=== PATIENT | female | born 1985 | race Asian ===

== ENCOUNTER 2018-10-31 20:34 | Emergency (ER) | payer OTHER ==
[2018-10-31 20:41] VITALS: BMI 24.2
[2018-10-31] MEDS ORDERED: SODIUM CHLORIDE 0.9% 500 ML INFUS.BAG IV ONE (20:46)
--- NOTE | 2018-10-31 20:46 | PDOC ---
Rapid Medical Evaluation Chief Complaint: Cold Symptoms Time Seen by Provider: 10/31/18 20:38 Medical Evaluation: Allergies Allergy/AdvReac Type Severity Reaction Status Date / Time No Known Allergies Allergy Verified 10/31/18 20:41 Vital Signs Temp Pulse Resp BP Pulse Ox 99.9 F H 121 H 100 H 130/71 100 10/31/18 20:39 10/31/18 20:39 10/31/18 20:39 10/31/18 20:39 10/31/18 20:39 10/31/18 20:44 I have performed a brief in-person evaluation of the patient. The patient presents with a chief complaint of: flu like symptoms x 1 week. Also reports tightening of stomach and shortness of breath x 3 days , 25 weeks Pertinent physical exam findings. appears ill nasal congestion, dried chapped lips, whitish tongue, erythematous pharynx even and unlabored breathing I have ordered the following. throat cx, flu swab The patient will proceed to the ED for further evaluation.
[2018-10-31] MEDS ORDERED: ACETAMINOPHEN 1000 MG/100 ML VIAL (NON FORMULARY) IVPB ONE (21:09)
--- NOTE | 2018-10-31 21:17 | PDOC ---
History of Present Illness - General Chief Complaint: Cold Symptoms Stated Complaint: FEVER (25wks) Time Seen by Provider: 10/31/18 20:38 History Source: Patient Exam Limitations: No Limitations - History of Present Illness Initial Comments: 10/31/18 21:11 Pt is a 33 yo F 25 weeks with no significant PMH presenting to ED with complaints of 1 week of fevers, chills, sore throat, generalized body aches x1week. Pt states she has been taking tylenol but she still feels ill. Endorses dry cough, SOB, dysuria, neck pain and headache. Has not gotten the flu shot, no sick contacts. Denies abdominal pain, n/v/d, ear pain, vaginal bleeding, contractions, leakage of fluids. PMD: PMH: none PSH: none Meds: none Allergies: nkda Social: denies Past History - Past Medical History Allergies/Adverse Reactions: Allergies Allergy/AdvReac Type Severity Reaction Status Date / Time No Known Allergies Allergy Verified 10/31/18 20:41 Home Medications: Ambulatory Orders Benzocaine Oral Gel [Anbesol -] 1 applic MM QID #1 tube 10/31/18 Penicillin V Potassium [Pen Vee K -] 500 mg PO BID #14 tablet 10/31/18 COPD: No - Suicide/Smoking/Psychosocial Hx Smoking History: Never smoked Have you smoked in the past 12 months: No Hx Alcohol Use: No Drug/Substance Use Hx: No Review of Systems - Review of Systems Constitutional: Yes: Chills, Fever, Weakness HEENTM: Yes: See HPI, Throat Pain, Mouth Pain, Dental Problems. No: Eye Pain, Ear Pain, Throat Swelling, Mouth Swelling Respiratory: Yes: Cough, Shortness of Breath. No: Hemoptysis Cardiac (ROS): No: Chest Pain, Lightheadedness, Palpitations, Syncope ABD/GI: No: Constipated, Diarrhea, Nausea, Vomiting, Abdominal cramping : Yes: See HPI, Burning. No: Discharge, Frequency, Hematuria Musculoskeletal: Yes: Joint Pain, Muscle Pain, Neck Pain Integumentary: No: Symptoms Reported Neurological: Yes: Headache. No: Numbness, Paresthesia, Tingling *Physical Exam - Vital Signs Last Vital Signs Temp Pulse Resp BP Pulse Ox 99.9 F H 121 H 100 H 130/71 100 10/31/18 20:39 10/31/18 20:39 10/31/18 20:39 10/31/18 20:39 10/31/18 20:39 - Physical Exam General Appearance: Yes: Nourished, Appropriately Dressed, Mild Distress HEENT: positive: EOMI, LEILANI, TMs Normal (L TM normal, could not visualize R tm due to wax), Pharyngeal Erythema, Tonsillar Erythema, Nasal Congestion, Hearing Grossly Normal, Other (no oropharyngeal swelling. R submandibular LAD and tenderness. Poor dentition). negative: Tonsillar Exudate Neck: positive: Trachea midline, Supple. negative: Lymphadenopathy (R), Lymphadenopathy (L) Respiratory/Chest: positive: Lungs Clear, Normal Breath Sounds. negative: Paradoxal Breathing, Crackles, Rales, Rhonchi, Wheezing Cardiovascular: positive: Regular Rhythm, S1, S2, Tachycardia. negative: Edema , JVD, Murmur Vascular Pulses: Carotid (R): 2+, Carotid (L): 2+, Dorsalis-Pedis (R): 2+, Doralis-Pedis (L): 2+ Gastrointestinal/Abdominal: positive: Normal Bowel Sounds, Soft, Other (gravid. No uterine contraction). negative: Guarding, Rebound, Tenderness Musculoskeletal: negative: CVA Tenderness Extremity: positive: Normal Capillary Refill, Normal Inspection. negative: Swelling, Calf Tenderness Integumentary: positive: Normal Color, Dry, Warm. negative: Cold, Clammy Neurologic: positive: receivables specialist II-XII NML intact, Fully Oriented, Alert, Normal Mood/ Affect, Normal Response, Motor Strength 5/5 Moderate Sedation - Procedure Monitoring Vital Signs: Procedure Monitoring Vital Signs Temperature 99.9 F H 10/31/18 20:39 Pulse Rate 121 H 10/31/18 20:39 Respiratory Rate 100 H 10/31/18 20:39 Blood Pressure 130/71 10/31/18 20:39 O2 Sat by Pulse Oximetry (%) 100 10/31/18 20:39 ED Treatment Course - LABORATORY CBC & Chemistry Diagram: 10/31/18 21:15 10/31/18 21:15 Medical Decision Making - Medical Decision Making 10/31/18 21:20 Pt is a 33 yo F 25 weeks with no significant PMH presenting to ED with complaints of 1 week of fevers, chills, sore throat, generalized body aches x1week. Pt states she has been taking tylenol but she still feels ill. Endorses dysuria, neck pain and headache. Has not gotten the flu shot, no sick contacts. Denies abdominal pain, n/v/d, ear pain, vaginal bleeding, contractions , leakage of fluids. Vitals: borderline fever, tachycardia PE: pharyngeal erythema, R submandibular LAD with tenderness, poor oral dentition, No tongue swelling, no cervical LAD, CTA bilaterally, normal uvula, no tonsillar exudates or swelling. Ddx includes but not limited to influenza, strep, viral URI, meningitis cbc, cmp, strep, flu ordered by RME IV fluids, IV tylenol, UA, Ucx. Does not need imaging at this time: low suspicion for PNA (lungs cta, dry cough) Flu and strep negative. CBC significant for WBC 11.7 (could be elevated due to ). Pt getting FST in ED. Most likely has viral URI with possible dental abscess. Will give abx. Recommend dentist visit Per L&D nurse, pt is cleared. UA negative. Pt feels a little better. Will give Rx for PCN and benzocaine gel to apply to gums so she can eat. Will give pcn dose here in ED. Pt otherwise stable, will dc home. given strict return precautions. *DC/Admit/Observation/Transfer Diagnosis at time of Disposition: Viral URI, Dental abscess - Discharge Dispostion Disposition: HOME Condition at time of disposition: Good Decision to Admit order: No - Prescriptions Prescriptions: Benzocaine Oral Gel [Anbesol -] 1 applic MM QID #1 tube Penicillin V Potassium [Pen Vee K -] 500 mg PO BID #14 tablet - Referrals Referrals: Ramonita Ahumada MD [Primary Care Provider] - - Patient Instructions Printed Discharge Instructions: Tooth Abscess, DI for Viral Upper Respiratory Infection -- Adult, DI for Tooth Decay Additional Instructions: You were seen in the emergency room today for fevers, chills, mouth pain. It looks like you have an upper airway infection most likely caused by a virus. It also seems like you may have an infection in your tooth. Keep yourself well hydrated. Drink lots of water and drink soup if you are unable to tolerate solids at this time. Make sure you brush your teeth daily. And keep your weekly visits with Dr. Ahumada I recommend that you see a dentist as soon as you can. If you do not have a dentist, you can go to [facility] [address], [place] [address] You can also visit [address] [place] [id number] It is a critical access hospital clinic that may provide dental care as well. A prescription for an antibiotic was sent to your pharmacy. Please take as directed. A prescription for gel (Benzocaine) to apply to the gums was also sent ot the pharmacy. I do not know if this will be covered, but if it is not, you can purchase over the counter pain gel to apply to the mouth as needed. You can ask the pharmacist to show you where to find it. Take Tylenol for pain and fever as needed. Come back to the emergency room if pain gets worse, fever is higher than 101, you start vomiting, if you are going into labor, have vaginal bleeding, or if any new concerning symptom develops. Thank you - Post Discharge Activity
[2018-10-31] MEDS ORDERED: ACETAMINOPHEN INJECTION 100 ML IVPB ONE (21:20)
[2018-10-31 21:24] LABS: BASO % 0.7 % (0-2.0); EOS % 0.2 % (0-4.5); HEMOGLOBIN 11.5 GM/dL (10.7-15.3); LYMPH % 13.3 % (8-40); MCH 31.2 pg (25.7-33.7); MCHC 34.8 g/dl (32.0-36.0); MEAN CELL VOLUME 89.7 fl (80-96); MEAN PLT VOLUME 7.7 fl (7.5-11.1); MONO % 8.6 % (3.8-10.2); NEUT % 77.2 % (42.8-82.8); PLATELET COUNT 232 K/MM3 (134-434); RBC 3.67 M/mm3 (3.60-5.2); RDW 12.9 % (11.6-15.6); WHITE BLOOD COUNT 11.7 K/mm3 (4.0-10.0)
[2018-10-31 21:44] LABS: ALBUMIN 2.6 g/dl (3.4-5.0); ALK PHOS 116 U/L (45-117); ANION GAP 10 MMOL/L (8-16); BILIRUBIN,TOTAL 0.3 mg/dL (0.2-1); BLOOD UREA NITROGEN 5 mg/dL (7-18); CALCIUM 8.1 mg/dL (8.5-10.1); CHLORIDE 104 mmol/L (98-107); CO2 24 mmol/L (21-32); CREATININE 0.4 mg/dL (0.55-1.3); GLUCOSE,RANDOM 80 mg/dL (74-106); POTASSIUM 3.6 mmol/L (3.5-5.1); SGOT/AST 19 U/L (15-37); SGPT/ALT 20 U/L (13-61); SODIUM 138 mmol/L (136-145); TOT PROT 6.9 g/dl (6.4-8.2)
--- NOTE | 2018-10-31 21:45 | PDOC ---
Attending Attestation - Resident Resident Name: MichelleSaCheyenne - ED Attending Attestation I have performed the following: I have examined & evaluated the patient, The case was reviewed & discussed with the resident, I agree w/resident's findings & plan, Exceptions are as noted - HPI HPI: 10/31/18 21:31 33 yo female who is 25 weeks has had cough,nasal congestion,and sore throat - Physicial Exam PE: 10/31/18 22:16 33 yo female w sore throat and URI sympotms head ncat neck supple oropharynx no exudates, +erythematous oral exam reveals percussion sensitive teeth under the 3 unit bridge on lower rt and some submandibular swelling.there is swelling to the buccal mucosa pt is able to speak clearly, does NOT have a "hot potato" voice,is able to handle her own saliva lungs cta b/l cvs tachycardia abd protuberant skin warm and dry neuro axox3, no gross focal neuro deficits - Medical Decision Making 10/31/18 22:22 NEGATIVE strep and influenza cultures L and D did monitoring in the ED 10/31/18 22:53 pt placed on antibiotics for her dental infection plan follow up with educational guidance counselor
[2018-10-31 22:25] LABS: URINE APPEARANCE CLEAR; URINE BILIRUBIN NEGATIVE (<2.0 mg/dL); URINE COLOR STRAW; URINE GLUCOSE (UA) NEGATIVE (NEGATIVE); URINE KETONE 1+ (NEGATIVE); URINE LEUK ESTERASE NEGATIVE (NEGATIVE); URINE NITRITE NEGATIVE (NEGATIVE); URINE PROTEIN NEGATIVE (NEGATIVE); URINE UROBILINOGEN NEGATIVE mg/dL (0.2-1.0)
[2018-10-31] MEDS ORDERED: PENICILLIN V POTASSIUM 500 MG TABLET PO ONE (22:40)
[2018-10-31 23:28] VITALS: BP 102/59; PULSE 88; TEMP 98
== END 2018-10-31 23:29 | disposition home or self-care (01) ==
LOC: JER 20:34
PROC: 3E033NZ Introduction of Analgesics, Hypnotics, Sedatives into Peripheral Vein, Percutaneous Approach (ICD-10-PCS; principal; 2018-10-31)
DX: O26.892 Other specified pregnancy related conditions, second trimester (principal); O99.512 Diseases of the respiratory system complicating pregnancy, second trimester; J06.9 Acute upper respiratory infection, unspecified; K04.7 Periapical abscess without sinus; Z3A.25 25 weeks gestation of pregnancy
CPT/HCPCS: 36415; 80053; 81003; 85025; 87070; 87086; 87804; 87880; 96374; 99283-25; J0131

== ENCOUNTER 2019-02-07 15:00 | Inpatient (IN) | payer OTHER ==
[2019-02-07 15:55] VITALS: BMI 24.5
[2019-02-07] MEDS ORDERED: OXYTOCIN 30 UNITS in 0.9% NS 30 UNIT/500 ML INFUS.BAG IVPB ONE (16:01)
[2019-02-07] MEDS ORDERED: ELECTROLYTE-148 SOLN 1,000 ML IV SCH (16:30)
[2019-02-07] MEDS ORDERED: TUBERCULIN PPD 5 TU/0.1ML SYRINGE (IN PATIENT USE ONLY) ID ONE (16:30)
[2019-02-07 17:09] LABS: BASO % 0.4 % (0-2.0); EOS % 0.4 % (0-4.5); HEMATOCRIT 38.5 % (32.4-45.2); HEMOGLOBIN 12.8 GM/dL (10.7-15.3); LYMPH % 15.9 % (8-40); MCHC 33.3 g/dl (32.0-36.0); MEAN CELL VOLUME 90.1 fl (80-96); MEAN PLT VOLUME 9.2 fl (7.5-11.1); NEUT % 77.3 % (42.8-82.8); PLATELET COUNT 223 K/MM3 (134-434); RBC 4.27 M/mm3 (3.60-5.2); RDW 13.6 % (11.6-15.6); WHITE BLOOD COUNT 13.1 K/mm3 (4.0-10.0)
[2019-02-07 17:21] LABS: INR 0.91 (0.83-1.09); PROTHROMBIN TIME (PATIENT) 10.7 SEC (9.7-13.0)
[2019-02-07 17:24] LABS: ACTIVATED PTT 28.4 SECONDS (25.2-36.5)
[2019-02-07 17:33] LABS: ANION GAP 11 MMOL/L (8-16); BLOOD UREA NITROGEN 11 mg/dL (7-18); CALCIUM 8.7 mg/dL (8.5-10.1); CHLORIDE 108 mmol/L (98-107); CO2 20 mmol/L (21-32); CREATININE 0.7 mg/dL (0.55-1.3); GLUCOSE,RANDOM 92 mg/dL (74-106); POTASSIUM 3.8 mmol/L (3.5-5.1); SODIUM 138 mmol/L (136-145)
[2019-02-07] MEDS ORDERED: PROMETHAZINE HCL 25 MG/1 ML VIAL ONE (18:08)
[2019-02-07] MEDS ORDERED: BUTORPHANOL TARTRATE 2 MG/ML VIAL IVPUSH PRN (18:08)
[2019-02-07] MEDS ORDERED: BUTORPHANOL TARTRATE 2 MG/ML VIAL ONE (18:08)
[2019-02-07] MEDS ORDERED: OXYTOCIN 20 UNITS in 0.9% NS 20 UNIT/1,000 ML INFUS.BAG IV ONE ×2 (18:09→21:11)
[2019-02-07] MEDS ORDERED: OXYTOCIN 30 UNITS in 0.9% NS 30 UNIT/500 ML INFUS.BAG IVPB SCH (18:15)
[2019-02-07] MEDS ORDERED: LIDOCAINE HCL 1% PRESERVATIVE FREE - 30ML VIAL ONE (18:40)
[2019-02-07] MEDS ORDERED: METHYLERGONOVINE MALEATE 0.2 MG/1 ML AMP IM PRN (18:57)
[2019-02-07] MEDS ORDERED: BISACODYL 10 MG SUPP.RECT PR PRN (18:57)
[2019-02-07] MEDS ORDERED: BENZOCAINE 20% 57 GM BOTTLE TP PRN (18:57)
[2019-02-07] MEDS ORDERED: WITCH HAZEL 50% (TUCKS) 40 PAD/JAR PAD TP PRN (18:57)
[2019-02-07] MEDS ORDERED: BENZOCAINE 28 GM HEMORRHOIDAL OINTMENT PR PRN (18:57)
--- NOTE | 2019-02-07 18:57 | HP ---
Past Medical History - Primary Care Physician PCP:: Ramonita Ahumada - Admission Chief Complaint: Labor History of Present Illness: 33 EDC 02/09/19 EGA 39.5 week admited in labor no rom no bleeding pt with x 2 and gestational DM History Source: Patient Limitations to Obtaining History: No Limitations - Past Medical History ...: 3 ...Para: 2 ...Term: 2 ...LMP: 05/05/18 ... Weeks Gestation by Dates: 39.5 ...EDC by Dates: 02/09/19 ...EDC by Sono: 02/09/19 - Past Surgical History Past Surgical History: Yes: None Hx Myomectomy: No Hx Transabdominal Cerclage: No - Smoking History Smoking history: Never smoked Have you smoked in the past 12 months: No - Alcohol/Substance Use Hx Alcohol Use: No History of Substance Use: reports: None - Social History Usual Living Arrangement: Yes: With Significant Other History of Recent Travel: No Home Medications - Allergies Allergies/Adverse Reactions: Allergies Allergy/AdvReac Type Severity Reaction Status Date / Time No Known Allergies Allergy Verified 01/31/19 23:32 - Home Medications Home Medications: Ambulatory Orders Vitamins (Sjr) - 1 tab PO DAILY 01/31/19 Review of Systems - Review of Systems Constitutional: reports: No Symptoms Eyes: reports: No Symptoms HENT: reports: No Symptoms Neck: reports: No Symptoms Cardiovascular: reports: No Symptoms Respiratory: reports: No Symptoms Gastrointestinal: reports: No Symptoms, Abdominal Pain Genitourinary: reports: No Symptoms Breasts: reports: No Symptoms Reported Musculoskeletal: reports: No Symptoms Integumentary: reports: No Symptoms Neurological: reports: No Symptoms Endocrine: reports: No Symptoms Hematology/Lymphatic: reports: No Symptoms Psychiatric: reports: No Symptoms Physical Exam - Maternity Vital Signs: Vital Signs Temperature 97.9 F 02/07/19 15:47 Pulse Rate 79 02/07/19 17:00 Respiratory Rate 20 02/07/19 17:00 Blood Pressure 124/68 02/07/19 17:00 O2 Sat by Pulse Oximetry (%) Constitutional: Yes: Well Nourished, No Distress HENT: Yes: WNL Neck: Yes: WNL Cardiovascular: Yes: WNL Lungs: Clear to auscultation - Abdominal Exam/OB Number of Fetuses: Single Presentation: Vertex Contractions: Yes Regularity: Regular Monitor Mode: External Category: I Accelerations: Non-Uniform Decelerations: None - Vaginal Exam/OB Dilatation (cm): FD Effacement (%): 100 Amniotic Membrane Status: Ruptured Amniotic Fluid: Yes: Clear Presentation: Vertex/Position - Physical Exam Musculoskeletal: Yes: WNL Extremities: Yes: WNL Edema: No Psychiatric: Yes: WNL, Alert, Oriented - Labs Lab Results: CBC, BMP 02/07/19 16:30 02/07/19 16:30 Hemorrhage Risk Assessment - Risk Factors Risk Score: 0 Risk Level: Low Risk Problem List - Problems (1) Labor established Code(s): [id number] - Assessment/Plan IUP at 39.5 weeks labor GBS negative Plan anticipate labor
[2019-02-07] MEDS ORDERED: OXYTOCIN 20 UNITS in 0.9% NS 20 UNIT/1,000 ML INFUS.BAG IV SCH ×2 (19:00→23:37)
--- NOTE | 2019-02-07 19:01 | PN ---
Delivery - Delivery Vaginal Delivery: No Problems Type of Anesthesia: Local Episiotomy/Laceration: 1st degree EBL (cc): 300 (Nuchal cord X 1 ) Delivery, Single - Stages of Labor Placenta: Yes: Spontaneous - Condition of Infant Gender: Male Position: OP - Dana Feeding Plan Initial Plan: Exclusive throughout hospitalization
[2019-02-07] MEDS ORDERED: PROMETHAZINE HCL 25 MG/1 ML VIAL IVPUSH ONE (19:04)
[2019-02-08] MEDS: IBUPROFEN 600 MG TABLET (FP) PO PRN ×3 (00:53→22:23)
[2019-02-08] MEDS: ACETAMINOPHEN 325 MG TABLET (FP) PO PRN ×3 (00:54→22:22)
[2019-02-08 07:36] LABS: BASO % 0.3 % (0-2.0); EOS % 0.5 % (0-4.5); HEMATOCRIT 33.6 % (32.4-45.2); HEMOGLOBIN 11.3 GM/dL (10.7-15.3); MCH 30.4 pg (25.7-33.7); MCHC 33.7 g/dl (32.0-36.0); MEAN CELL VOLUME 90.2 fl (80-96); MEAN PLT VOLUME 9.1 fl (7.5-11.1); MONO % 6.5 % (3.8-10.2); NEUT % 75.7 % (42.8-82.8); PLATELET COUNT 172 K/MM3 (134-434); RBC 3.73 M/mm3 (3.60-5.2); RDW 13.6 % (11.6-15.6); WHITE BLOOD COUNT 12.9 K/mm3 (4.0-10.0)
--- NOTE | 2019-02-08 23:22 | PN ---
Post Note - Post Date of Delivery: 02/07/19 Post Day: 1 Vital Signs: Vital Signs - 24 hr 02/08/19 02/08/19 02/08/19 00:41 05:55 09:02 Temperature 98.1 F 98.1 F 97.8 F Pulse Rate 82 72 80 Respiratory 20 18 18 Rate Blood Pressure 113/61 96/62 111/70 02/08/19 02/08/19 02/08/19 13:41 18:00 21:04 Temperature 97.6 F 97.9 F 97.9 F Pulse Rate 80 79 84 Respiratory 18 18 20 Rate Blood Pressure 104/65 104/71 125/75 Labs: Laboratory Results - last 24 hr 02/07/19 02/08/19 16:35 06:35 WBC 12.9 H RBC 3.73 Hgb 11.3 Hct 33.6 MCV 90.2 MCH 30.4 MCHC 33.7 RDW 13.6 Plt Count 172 D MPV 9.1 Absolute Neuts (auto) 9.8 H Neutrophils % 75.7 Lymphocytes % 17.0 Monocytes % 6.5 Eosinophils % 0.5 Basophils % 0.3 Nucleated RBC % 0 RPR Titer Nonreactive - Subjective Subjective: No Complaints - Objective Afebrile: Yes Breast: Not engorged Abdomen: Soft, Non-tender Uterus: Fundus firm Vagina: Scant lochia Extremities: Non-tender - Assessment/Plan (1) Labor established Assessment: S/P Normal Plan: Routine Care, Other (anemia)
[2019-02-09 10:40] VITALS: BP 124/67; PULSE 111; TEMP 98
[2019-02-09] MEDS: ACETAMINOPHEN 325 MG TABLET (FP) PO PRN (12:45)
[2019-02-09] MEDS: IBUPROFEN 600 MG TABLET (FP) PO PRN (12:47)
== END 2019-02-09 17:30 | disposition home or self-care (01) | DRG 560 ==
LOC: JLDR 15:00 → J3W 23:55
PROVIDERS: ADMIT Obstetrics & Gynecology; ATTEND Obstetrics & Gynecology
PROC: 0HQ9XZZ Repair Perineum Skin, External Approach (ICD-10-PCS; principal; 2019-02-07)
PROC: 10E0XZZ Delivery of Products of Conception, External Approach (ICD-10-PCS; 2019-02-07)
DX: O70.0 First degree perineal laceration during delivery (principal); Z3A.39 39 weeks gestation of pregnancy; Z37.0 Single live birth
CPT/HCPCS: 36415; 59409; 80048; 82962; 85025; 85610; 85730; 86593; 86850; 86900; 86901